=== PATIENT | female | born 1990 | race Caucasian/White ===

== ENCOUNTER 2017-12-23 17:52 | Emergency (ER) | payer OTHER, MEDICAID ==
[~2017-12-23] VITALS: Ht 165.1 cm; Wt 99.8 kg
[2017-12-23 18:02] VITALS: BP 128/83
[2017-12-23] MEDS ORDERED: ACETAMINOPHEN-1 EAC1 PO (18:13)
[2017-12-23] MEDS ORDERED: KEFLEX500 M1 PO (18:13)
== END 2017-12-23 18:30 | disposition home or self-care (01) ==
LOC: M.ERS 17:52
DX: N60.01 Solitary cyst of right breast (principal)